=== PATIENT | female | born 2000 | race Caucasian/White ===

== ENCOUNTER 2019-09-02 23:35 | Emergency (ER) | payer OTHER ==
[~2019-09-02] VITALS: Ht 162.6 cm; Wt 113.4 kg
[2019-09-02 23:57] VITALS: Ht 162.6 cm; Wt 113.4 kg
[2019-09-03 03:41] VITALS: BP 184/122
== END 2019-09-03 03:41 | disposition home or self-care (01) ==
LOC: ED 23:35
DX: S09.90XA Unspecified injury of head, initial encounter (principal); V49.9XXA Car occupant (driver) (passenger) injured in unspecified traffic accident, initial encounter; Y93.89 Activity, other specified; Y92.89 Other specified places as the place of occurrence of the external cause; Y99.8 Other external cause status
CPT/HCPCS: J1885